=== PATIENT | female | born 1965 | race Caucasian/White ===

== ENCOUNTER → 2019-01-10 | Outpatient (CLI) | payer SELFPAY ==
--- NOTE | 2019-01-10 11:43 | PCVCIMAG ---
APPROVED REPORT Study performed: 01/10/2019 10:44:52 Exam: Stress Echocardiogram Indication: chest pain Patient Location: Echo lab Stress Nurse: Yamilet Guzman RN Status: routine Ht: 5 ft 8 in HR: 75 bpm BP: 152/80 mmHg Rhythm: NSR Medical History Medical History: asthma Procedure The patient underwent an Exercise Stress Test using the John Protocol. Blood pressure, heart rate, and EKG were monitored. An Echocardiogram was performed by biological science technician in four stages in quad fashion. At peak stress, four selected images were obtained and placed side by side with resting images for comparison. Stress Test Details Stress Test: Exercise stress testing was performed using a John protocol. HR Resting HR: 75 bpmMax Heart Rate (APMHR): 168 bpm Max HR Achieved: 153 bpmTarget HR (85% APMHR): 142 bpm % of APMHR: 91 Recovery HR: 95 bpm HR response to stress: Normal HR response to stress BP Resting BP: 110/80 mmHg Max BP: 152/80 mmHg Recovery BP: 118/80 mmHg BP response to stress: Normal blood pressure response to stress. ECG Resting ECG: Sinus Rhythm Stress ECG: Sinus Rhythm Recovery ECG: Sinus Rhythm Clinical Reason for Termination: Dyspnea Exercise duration: 7 min 02 sec Highest Stage Achieved: Stage 2: 2.5 mph at 12% grade. Exercise capacity: 10.10 METs Overall Exercise Capacity for Age: Poor Pre-Stress Echo The resting Echocardiogram showed normal left ventricular contractility with an estimated Ejection Fraction of about 55-60%. Normal wall motion in all segments on baseline images. Post-Stress Echo The stress Echocardiogram showed normal left ventricular contractility with an estimated Ejection Fraction of about 60-65%. Normal augmentation of wall motion in all segments on post stress images. Clinical No clinical or ECG evidence for ischemia. Conclusion Clinical Response: Non-ischemic Exercise Capacity: Below Average Stress ECG Response: Non-ischemic Stress Echo Images: Non-ischemic The left ventricle is normal in size and wall thickness in both the rest and stress images. Normal color/doppler study. No significant valvular abnormalities. Other Information Study Quality: Technically Difficult <Conclusion> The left ventricle is normal in size and wall thickness in both the rest and stress images. Normal color/doppler study. No significant valvular abnormalities.
== END | disposition home or self-care (01) ==
LOC: PCVCIMAG 10:10
PROVIDERS: ATTEND Family Medicine
DX: R07.89 Other chest pain (principal)
CPT/HCPCS: 93325; 93351